=== PATIENT | male | born 1955 | race Hispanic/Latino ===

== ENCOUNTER 2017-12-07 09:25 | Emergency (ER) | payer OTHER ==
[2017-12-07 09:26] VITALS: BMI 25.0
[2017-12-07 10:15] LABS: BASO % 0.8 % (0.0-2.0); EOS # 0.1 K/uL (0.0-0.7); EOS % 1.5 % (0.0-4.0); HEMOGLOBIN 15.3 g/dL (12.0-18.0); LYMPH # 0.7 K/uL (1.0-4.3); LYMPH % 14.3 % (20.0-40.0); MEAN CELL VOLUME 93.2 fL (80.0-94.0); MEAN CORPUSCULAR HEMOGLOBIN 32.2 pg (27.0-31.0); MEAN CORPUSCULAR HGB CONC 34.5 g/dL (33.0-37.0); MEAN PLATELET VOLUME 8.9 fL (7.2-11.7); MONO # 0.5 K/uL (0.0-0.8); MONO % 10.7 % (0.0-10.0); NEUT # 3.5 K/uL (1.8-7.0); NEUT % 72.7 % (50.0-75.0); NRBC % 0.1 % (0.0-2.0); RBC 4.74 Mil/uL (4.40-5.90); RED CELL DISTRIBUTION WIDTH 12.7 % (11.5-14.5); WHITE BLOOD COUNT 4.8 K/uL (4.8-10.8)
[2017-12-07 10:20] LABS: SQUAMOUS EPITHIAL < 1 /hpf (0-5); URINE BILIRUBIN NEGATIVE (NEGATIVE); URINE BLOOD NEGATIVE (NEGATIVE); URINE CLARITY Clear (Clear); URINE COLOR Yellow (YELLOW); URINE GLUCOSE (UA) 3+ mg/dL (Normal); URINE LEUKOCYTE ESTERASE NEG Leu/uL (Negative); URINE PROTEIN NEGATIVE (NEGATIVE); URINE UROBILINOGEN NORMAL mg/dL (0.2-1.0)
--- NOTE | 2017-12-07 10:47 | CT ---
Date of service: 12/07/2017 PROCEDURE: CT Abdomen and Pelvis without intravenous contrast HISTORY: hematuria COMPARISON: None. TECHNIQUE: Without contrast.. Contrast dose: 0 Radiation dose: Total exam DLP = 791.99 mGy-cm. This CT exam was performed using one or more of the following dose reduction techniques: Automated exposure control, adjustment of the mA and/or kV according to patient size, and/or use of iterative reconstruction technique. FINDINGS: LOWER THORAX: Unremarkable. LIVER: Unremarkable. No gross lesion or ductal dilatation. GALLBLADDER AND BILE DUCTS: Contracted. No calcified gallstones identified. PANCREAS: Unremarkable. No gross lesion or ductal dilatation. SPLEEN: Unremarkable. ADRENALS: Unremarkable. No mass. KIDNEYS AND URETERS: Left upper pole cortical cyst, 1.6 cm. This measures 9 Hounsfield units. No other renal mass. No renal calculus or hydronephrosis. VASCULATURE: Unremarkable. No aortic aneurysm. BOWEL: Sigmoid diverticulosis. No evidence of diverticulitis. No bowel obstruction. No other abnormal bowel loops are appreciated. APPENDIX: Not identified. No secondary findings to suggest appendicitis. PERITONEUM: No ascites. Very small umbilical hernia containing only mesenteric fat. LYMPH NODES: Unremarkable. No enlarged lymph nodes. BLADDER: Unremarkable. REPRODUCTIVE: Enlarged prostate measuring up to 6.3 cm transversely. BONES: No acute fracture. 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 OTHER FINDINGS: None. IMPRESSION: No evidence of urinary calculus. No evidence of urinary tract obstruction. Incidental left renal cortical cyst. Enlarged prostate. Minor findings as above.
[2017-12-07 10:51] LABS: BLOOD UREA NITROGEN 21 mg/dL (9-20); CALCIUM 9.5 mg/dl (8.6-10.4); GFR AFRICAN-AMERICAN > 60; GFR NON-AFRICAN AMERICAN > 60
[2017-12-07] MEDS ORDERED: Sodium Chloride 0.9% 1,000 ML IV ONE (10:57)
--- NOTE | 2017-12-07 10:57 | C.PDOC ---
Time Seen by Provider: 12/07/17 09:38 Chief Complaint (Nursing): Male Genitourinary Past Medical History Vital Signs: Last Vital Signs Temp 99.2 F 12/07/17 09:29 Pulse 89 12/07/17 09:29 Resp 18 12/07/17 09:29 BP 124/76 12/07/17 09:29 Pulse Ox 97 12/07/17 09:29 Surgical History: Appendectomy, Coronary Stent - [facility] Procedures CORONAR ARTERIOGR-2 CATH (09/04/13) INSERTION OF ONE VASCULAR STENT (09/04/13) INSRT OF DRUG-ELUTING CORON ARTERY STENTS(S) (09/04/13) LEFT HEART CARDIAC CATH (09/04/13) LT HEART ANGIOCARDIOGRAM (09/04/13) PERCUTANEOUS TRANSLUMINAL CORONARY ANGIOPLASTY [PTCA] (09/04/13) PROCEDURE ON SINGLE VESSEL (09/04/13) VACCINATION NEC (09/04/13) - Social History Hx Alcohol Use: Yes (occassional) Hx Substance Use: No ED Course And Treatment - Laboratory Results Result Diagrams: 12/07/17 10:08 12/07/17 10:08 Lab Interpretation: Abnormal O2 Sat by Pulse Oximetry: 97 Pulse Ox Interpretation: Normal - CT Scan/US CT abd/pelvis Other Rad Studies (CT/US): Radiology Report Reviewed CT/US Interpretation: ictator : Stu Cruz MD. Hims Manager : Glaze Handler : Stu Cruz MD. Approver2 : Report Date : 12/07/2017 10:22 :44. My Comment : . Date of service: 12/07/2017. PROCEDURE: CT Abdomen and Pelvis without intravenous contrast. HISTORY: hematuria. COMPARISON: None. TECHNIQUE: Without contrast.. Contrast dose: 0. Radiation dose: Total exam DLP = 791.99 mGy-cm. This CT exam was performed using one or more of the following dose reduction techniques: Automated exposure control, adjustment of the mA and/or kV according to patient size, and/or use of iterative reconstruction technique. FINDINGS: LOWER THORAX: Unremarkable. LIVER: Unremarkable. No gross lesion or ductal dilatation. GALLBLADDER AND BILE DUCTS: Contracted. No calcified gallstones identified. PANCREAS: Unremarkable. No gross lesion or ductal dilatation. SPLEEN: Unremarkable. ADRENALS: Unremarkable. No mass. KIDNEYS AND URETERS: Left upper pole cortical cyst, 1.6 cm. This measures 9 Hounsfield units. No other renal mass. No renal calculus or hydronephrosis. VASCULATURE: Unremarkable. No aortic aneurysm. BOWEL: Sigmoid diverticulosis. No evidence of diverticulitis. No bowel obstruction. No other abnormal bowel loops are appreciated. APPENDIX: Not identified. No secondary findings to suggest appendicitis. PERITONEUM: No ascites. Very small umbilical hernia containing only mesenteric fat. LYMPH NODES: Unremarkable. No enlarged lymph nodes. BLADDER: Unremarkable. REPRODUCTIVE: Enlarged prostate measuring up to 6.3 cm transversely. BONES: No acute fracture. 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 OTHER FINDINGS: None. IMPRESSION: No evidence of urinary calculus. No evidence of urinary tract obstruction. Incidental left renal cortical cyst. Enlarged prostate. Minor findings as above. Progress Note: On re-evaluation, pt is afebrile, hemodynamicaly stable. Non- toxic. Ambulatory in Ed with stable gait. ENT: no acute finidngs. neck: SUpple. Lungs: CTA B/L, BS equal B/L. Abd: benign, (-) guaridng, (-) rebound. back: (-) CVA tenderness. UA results review. Pt has clinical finidngs c/w. Pt advised. ref. to f/u with PMD, LINEWORKER in 2-3 days for re-evaluation. return to Ed if any worsening or new changes. Disposition - Disposition
--- NOTE | 2017-12-07 10:59 | C.PDOC ---
History Of Present Illness 62-year-old male, presents to the emergency department for evaluation of intermittent hematuria for the past few weeks, nocturnal polyuria, urinary hesitancy. Since last night, he noted some blood associated with mild suprapubic discomfort. No previous Hx of kidney stone/renal disease. Pt denies fever, chills, headache, dizziness, weakness, CP, SOB, dyspnea, palpitation, abd. pain, N/V/D, UTIU sx. Pt admits, was seen by PMD week ago and received referral for Urology eval by Dr.Y Nair, scheduled appointment for next week. Ambulate to Ed for evaluation, not in any apparent distress. Time Seen by Provider: 12/07/17 09:38 Chief Complaint (Nursing): Male Genitourinary History Per: Patient History/Exam Limitations: no limitations Current Symptoms Are (Timing): Still Present Severity: Moderate Past Medical History Reviewed: Historical Data, Nursing Documentation, Vital Signs Vital Signs: Last Vital Signs Temp 98.4 F 12/07/17 12:15 Pulse 71 12/07/17 12:15 Resp 18 12/07/17 12:15 BP 119/71 12/07/17 12:15 Pulse Ox 98 12/07/17 12:15 Surgical History: Appendectomy, Coronary Stent - [facility] Procedures CORONAR ARTERIOGR-2 CATH (09/04/13) INSERTION OF ONE VASCULAR STENT (09/04/13) INSRT OF DRUG-ELUTING CORON ARTERY STENTS(S) (09/04/13) LEFT HEART CARDIAC CATH (09/04/13) LT HEART ANGIOCARDIOGRAM (09/04/13) PERCUTANEOUS TRANSLUMINAL CORONARY ANGIOPLASTY [PTCA] (09/04/13) PROCEDURE ON SINGLE VESSEL (09/04/13) VACCINATION NEC (09/04/13) Family History: States: No Known Family Hx - Social History Hx Alcohol Use: Yes (occassional) Hx Substance Use: No Review Of Systems Constitutional: Negative for: Fever Respiratory: Negative for: Shortness of Breath Gastrointestinal: Positive for: Abdominal Pain. Negative for: Nausea, Vomiting Genitourinary: Positive for: Hematuria. Negative for: Dysuria Musculoskeletal: Negative for: Back Pain Skin: Negative for: Rash Neurological: Negative for: Weakness, Headache Physical Exam - Physical Exam Appears: Well, Non-toxic, No Acute Distress Skin: Normal Color, Warm, Dry, No Rash Head: Normacephalic Eye(s): bilateral: PERRL Nose: No Flaring, No Discharge Oral Mucosa: Moist, No Drooling Lips: Normal Appearing Throat: No Erythema, No Drooling Neck: Normal ROM, Trachea Midline, Supple Cardiovascular: Rhythm Regular, No Murmur, No JVD, Other ((-) caorit bruits B/l) Respiratory: No Decreased Breath Sounds, No Accessory Muscle Use, No Rales, No Rhonchi, No Stridor, No Wheezing Gastrointestinal/Abdominal: Soft, No Tenderness, No Distention, No Guarding, No Rebound Back: No CVA Tenderness Extremity: Normal ROM, No Pedal Edema, No Deformity, No Swelling Neurological/Psych: Oriented x3, Normal Speech, Normal Motor, Normal Sensation ED Course And Treatment - Laboratory Results Result Diagrams: 12/07/17 10:08 12/07/17 10:08 Lab Interpretation: Abnormal O2 Sat by Pulse Oximetry: 97 (RA) Pulse Ox Interpretation: Normal - CT Scan/US CT ABD/PEL Other Rad Studies (CT/US): Read By Radiologist, Radiology Report Reviewed CT/US Interpretation: D ictator : Stu Cruz MD. Digital Marketing Assistant : Survey Researcher : Stu Cruz MD. Approver2 : Report Date : 12/07/2017 10:22 :44. My Comment : . Date of service: 12/07/2017. PROCEDURE: CT Abdomen and Pelvis without intravenous contrast. HISTORY: hematuria. COMPARISON: None. TECHNIQUE: Without contrast.. Contrast dose: 0. Radiation dose: Total exam DLP = 791.99 mGy-cm. This CT exam was performed using one or more of the following dose reduction techniques: Automated exposure control, adjustment of the mA and/or kV according to patient size, and/or use of iterative reconstruction technique. FINDINGS: LOWER THORAX: Unremarkable. LIVER: Unremarkable. No gross lesion or ductal dilatation. GALLBLADDER AND BILE DUCTS: Contracted. No calcified gallstones identified. PANCREAS: Unremarkable. No gross lesion or ductal dilatation. SPLEEN: Unremarkable. ADRENALS: Unremarkable. No mass. KIDNEYS AND URETERS: Left upper pole cortical cyst, 1.6 cm. This measures 9 Hounsfield units. No other renal mass. No renal calculus or hydronephrosis. VASCULATURE: Unremarkable. No aortic aneurysm. BOWEL: Sigmoid diverticulosis. No evidence of diverticulitis. No bowel obstruction. No other abnormal bowel loops are appreciated. APPENDIX: Not identified. No secondary findings to suggest appendicitis. PERITONEUM: No ascites. Very small umbilical hernia containing only mesenteric fat. LYMPH NODES: Unremarkable. No enlarged lymph nodes. BLADDER: Unremarkable. REPRODUCTIVE: Enlarged prostate measuring up to 6.3 cm transversely. BONES: No acute fracture. 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 OTHER FINDINGS: None. IMPRESSION: No evidence of urinary calculus. No evidence of urinary tract obstruction. Incidental left renal cortical cyst. Enlarged prostate. Minor findings as above. Progress Note: Pt was OBS in ED for 3 hours. On re-evaluation, pt reports ' feels much better". Pt is afebrile, hemodynamicaly stable. Non-toxic. Ambulatory in Ed with stable gait. ENT: no acute finidngs. neck: SUpple, (-) JVD, (-) carotid bruits B/L. Lungs: CTA B/L, BS equal B/L. Abd: benign, (-) guaridng, (-) rebound. back: (-) CVA tenderness. Bloow work review (+) hyprglycemia. UA results review- glucosuria, (-) ketones. AG -12. repeat FSBS 194. Pt admits, has hx of diat controlled diabetes " was on medictaion long time ago, doctor took me off it". CT abd/pelvis review (-) acute pathology noted. case discussed with , results review. recommend discharges with Rx: Metformin 500 mg bid, Tradjenta 5mg qd with outpt f/u. Pt has scheduled appoitment with later this week as well. Pt has clinical finidngs c /w hematuria, hyperglycemia due to uncontroled DM. Pt advised. ref. to f/u with PMD, Urology in 2-3 days for re-evaluation. return to Ed if any worsening or new changes. Disposition Counseled Patient/Family Regarding: Studies Performed, Diagnosis, Need For Followup - Disposition Referrals: eDo Kerns MD [Staff Provider] - Lashawn Nair MD [Staff Provider] - Disposition: HOME/ ROUTINE Disposition Time: 12:01 Condition: STABLE Additional Instructions: Encourage fluids Take medication as prescribed Follow up with PMD, Urology in 1-2 days for re-evaluation. return to Ed if any worsening or new changes. Prescriptions: Linagliptin [Tradjenta] 5 mg PO DAILY #20 tablet metFORMIN [glucOPHAGE] 500 mg PO BID #30 tab Instructions: Hyperglycemia, Adult, Blood in the Urine (Hematuria) in Adults Forms: [facility] (K[place]akh), Work Excuse - Clinical Impression Clinical Impression: Hyperglycemia due to type 2 diabetes mellitus, Hematuria - Scribe Statement The provider has reviewed the documentation as recorded by the Scribe (Stone Casper) All medical record entries made by the Scribe were at my direction and personally dictated by me. I have reviewed the chart and agree that the record accurately reflects my personal performance of the history, physical exam, medical decision making, and the department course for this patient. I have also personally directed, reviewed, and agree with the discharge instructions and disposition.
[2017-12-07] MEDS ORDERED: (Novolin R) Insulin Human Regular 100 units/ml vial IV ONE (11:57)
[2017-12-07] MEDS ORDERED: (Novolin R) Insulin Human Regular 100 units/ml vial ONE (12:18)
[2017-12-07 13:44] VITALS: BP 131/82; PULSE 88; RESP 16; TEMP 98.9; O2SAT 100
== END 2017-12-07 13:44 | disposition home or self-care (01) ==
LOC: C.ER 09:25
DX: E11.65 Type 2 diabetes mellitus with hyperglycemia (principal); R31.9 Hematuria, unspecified
CPT/HCPCS: 74176; 80048; 81001; 82948; 85025; 87086; 96361; 96374; 99285; J7030